=== PATIENT | female | born 1965 | race Caucasian/White ===

== ENCOUNTER → 2023-12-16 17:46 | Outpatient (REF) | payer BC, SELFPAY | LOC: WDC 17:46 | PROVIDERS: ATTENDING PHYSICIAN Family Medicine | DX: Z12.31 Encounter for screening mammogram for malignant neoplasm of breast (principal) | CPT/HCPCS: 77063; 77067 ==

== ENCOUNTER → 2024-12-19 17:23 | Outpatient (REF) | payer BC, SELFPAY | LOC: WDC 17:23 | PROVIDERS: ATTENDING PHYSICIAN Obstetrics & Gynecology; FAMILY PHYSICIAN Family Medicine | DX: Z12.31 Encounter for screening mammogram for malignant neoplasm of breast (principal) | CPT/HCPCS: 77063; 77067 ==

== ENCOUNTER → 2025-02-27 12:51 | Outpatient (REF) | payer BC, SELFPAY | LOC: RCS 12:51 | PROVIDERS: ATTENDING PHYSICIAN Internal Medicine; FAMILY PHYSICIAN Family Medicine | DX: R07.9 Chest pain, unspecified (principal); I10 Essential (primary) hypertension | CPT/HCPCS: 93306 ==

== ENCOUNTER → 2025-02-28 08:04 | Outpatient (REF) | payer BC, SELFPAY | LOC: HWRCS 08:04 | PROVIDERS: ATTENDING PHYSICIAN Internal Medicine; FAMILY PHYSICIAN Family Medicine | DX: R07.9 Chest pain, unspecified (principal); I10 Essential (primary) hypertension | CPT/HCPCS: 78452; 93017; A9500 ==

== ENCOUNTER → 2025-03-21 10:50 | Outpatient (REF) | payer BC, SELFPAY | LOC: PAVMRI 10:50 | PROVIDERS: ATTENDING PHYSICIAN Nurse Practitioner; FAMILY PHYSICIAN Family Medicine | DX: I67.81 Acute cerebrovascular insufficiency (principal) | CPT/HCPCS: 70544; 70553; A9575 ==